=== PATIENT | male | born 1995 | race Caucasian/White ===

== ENCOUNTER 2018-09-17 03:33 | Inpatient (IN) | payer OTHER ==
[2018-09-17 03:59] LABS: HEMATOCRIT 56.1 % (42.0-52.0); HEMOGLOBIN 19.1 g/dl (13.5-17.5); MEAN CORPUSCULAR HEMOGLOBIN 28.8 pg (27.0-33.0); MEAN CORPUSCULAR VOLUME 84.6 fl (80.0-96.0); PLATELET COUNT, AUTOMATED 320 10^3/uL (150-450); RED BLOOD COUNT 6.63 10^6/uL (4.30-6.10); RED CELL DISTRIBUTION WIDTH 12.7 % (11.5-14.5); WHITE BLOOD COUNT 7.3 10^3/uL (4.0-10.0)
[2018-09-17 04:09] LABS: SUSPECT SAMPLE POS FLAG
[2018-09-17] MEDS: NS 1,000 ML IV ×3 (04:15→08:20)
[2018-09-17 04:33] LABS: ALBUMIN 4.8 GM/DL (3.2-5.2); ALKALINE PHOSPHATASE 110 U/L (45-117); ALT/SGPT 115 U/L (12-78); ANION GAP 10 MEQ/L (8-16); AST/SGOT 51 U/L (7-37); BILIRUBIN,DIRECT 0.1 MG/DL (0.0-0.2); BILIRUBIN,TOTAL 0.4 MG/DL (0.2-1.0); BLOOD UREA NITROGEN 11 MG/DL (7-18); CALCIUM LEVEL 8.6 MG/DL (8.5-10.1); CARBON DIOXIDE LEVEL 25 MEQ/L (21-32); CHLORIDE LEVEL 105 MEQ/L (98-107); CREATININE FOR GFR 1.05 MG/DL (0.70-1.30); ETHYL ALCOHOL (ETHANOL) 0.157 % (0.000-0.010); GLOMERULAR FILTRATION RATE > 60.0 (>60); GLUCOSE, FASTING 116 MG/DL (70-100); POTASSIUM SERUM 3.7 MEQ/L (3.5-5.1); SALICYLATE LEVEL < 1.7 MG/DL (5.0-30.0); SODIUM LEVEL 140 MEQ/L (136-145); TOTAL PROTEIN 8.5 GM/DL (6.4-8.2)
[2018-09-17 04:34] LABS: ACETAMINOPHEN LEVEL < 2.0 UG/ML (10.0-30.0)
[2018-09-17 04:41] LABS: AMPHETAMINES LEVEL URINE NEGATIVE (NEGATIVE); BARBITURATES URINE NEGATIVE (NEGATIVE); BENZODIAZEPINES URINE NEGATIVE (NEGATIVE); CANNABINOIDS URINE NEGATIVE (NEGATIVE); COCAINE METABOLITE URINE NEGATIVE (NEGATIVE); METHADONE URINE NEGATIVE (NEGATIVE); OPIATES URINE NEGATIVE (NEGATIVE); PHENCYCLIDINE URINE NEGATIVE (NEGATIVE)
[2018-09-17] MEDS: LORazepam 2 MG/ML VIAL (J2060) IV (06:58)
[2018-09-17 07:42] LABS: APPEARANCE, URINE CLEAR (CLEAR); BACTERIA, URINE AUTO NEGATIVE (NEGATIVE); BILIRUBIN, URINE AUTO NEGATIVE (NEGATIVE); BLOOD, URINE BLOOD 1+ (NEGATIVE); COLOR, URINE STRAW (YELLOW); GLUCOSE, URINE (UA) AUTO NEGATIVE (NEGATIVE); KETONE, URINE AUTO NEGATIVE (NEGATIVE); LEUKOCYTE ESTERASE, URINE AUTO NEGATIVE (NEGATIVE); NITRITE, URINE AUTO NEGATIVE (NEGATIVE); PROTEIN, URINE AUTO 1+ mg/dL (NEGATIVE); RBC, URINE AUTO 1 /HPF (0-3); SPECIFIC GRAVITY URINE AUTO 1.004 (1.002-1.035); SQUAMOUS EPITHELIAL CELL UR AU 0 /HPF (0-6); UROBILINOGEN, URINE AUTO 0.2 mg/dL (0.0-2.0); WBC, URINE AUTO 4 /HPF (0-3)
[2018-09-17] MEDS: OXAZEPAM 15 MG CAP PO (08:20)
[2018-09-17] MEDS ORDERED: LORazepam 2 MG TAB PO ×2 (10:00→16:15)
[2018-09-17] MEDS ORDERED: MOM 30ML SUSPENSION UDC PO (16:15)
[2018-09-17] MEDS ORDERED: MAALOX 30 ML SUSP *UDC PO (16:15)
[2018-09-17] MEDS ORDERED: IBUPROFEN 400 MG TAB PO (16:15)
[2018-09-17] MEDS: THIAMINE 100 MG TAB PO ×2 (18:14→21:06)
[2018-09-17] MEDS ORDERED: cloNIDine 0.2 MG TAB PO (18:30)
[2018-09-17] MEDS: cloNIDine 0.2 MG TAB PO (18:53)
[2018-09-17] MEDS ORDERED: LISINOPRIL 20 MG TAB PO (20:45)
[2018-09-17] MEDS ORDERED: LISINOPRIL 10 MG TAB PO (21:00)
[2018-09-17] MEDS ORDERED: THIAMINE 100 MG TAB PO (21:00)
[2018-09-17] MEDS: traZODone 50 MG TAB PO (21:06)
[2018-09-17] MEDS: **hydrALAZINE** 10 MG TAB PO (21:06)
[2018-09-18] MEDS: **hydrALAZINE** 10 MG TAB PO ×3 (06:07→21:29)
[2018-09-18] MEDS ORDERED: FOLIC ACID 1 MG TAB PO (09:00)
[2018-09-18] MEDS ORDERED: MULTIVITAMINS/MINERALS THERAP 1 TAB PO (09:00)
[2018-09-18] MEDS: FOLIC ACID 1 MG TAB PO (09:41)
[2018-09-18] MEDS: MULTIVITAMINS/MINERALS THERAP 1 TAB PO (09:43)
[2018-09-18] MEDS: cloNIDine 0.2 MG TAB PO ×2 (09:43→16:29)
[2018-09-18] MEDS: THIAMINE 100 MG TAB PO ×2 (09:43→21:29)
[2018-09-18 11:39] LABS: ALBUMIN 3.8 GM/DL (3.2-5.2); ALBUMIN/GLOBULIN RATIO 1.31 (1.00-1.93); ALKALINE PHOSPHATASE 86 U/L (45-117); ALT/SGPT 80 U/L (12-78); ANION GAP 6 MEQ/L (8-16); AST/SGOT 29 U/L (7-37); BILIRUBIN,TOTAL 0.6 MG/DL (0.2-1.0); BLOOD UREA NITROGEN 15 MG/DL (7-18); CALCIUM LEVEL 9.5 MG/DL (8.5-10.1); CARBON DIOXIDE LEVEL 29 MEQ/L (21-32); CHLORIDE LEVEL 104 MEQ/L (98-107); CREATININE FOR GFR 1.01 MG/DL (0.70-1.30); GLOMERULAR FILTRATION RATE > 60.0 (>60); GLUCOSE, FASTING 91 MG/DL (70-100); POTASSIUM SERUM 4.3 MEQ/L (3.5-5.1); SODIUM LEVEL 139 MEQ/L (136-145); TOTAL PROTEIN 6.7 GM/DL (6.4-8.2)
[2018-09-18 19:05] LABS: HEMATOCRIT 48.3 % (42.0-52.0); MEAN CORPUSCULAR HEMOGLOBIN 28.8 pg (27.0-33.0); MEAN CORPUSCULAR HGB CONC 32.9 g/dl (32.0-36.5); MEAN CORPUSCULAR VOLUME 87.5 fl (80.0-96.0); PLATELET COUNT, AUTOMATED 274 10^3/uL (150-450); RED BLOOD COUNT 5.52 10^6/uL (4.30-6.10); RED CELL DISTRIBUTION WIDTH 12.8 % (11.5-14.5); WHITE BLOOD COUNT 6.3 10^3/uL (4.0-10.0)
[2018-09-18 19:07] LABS: HEMOGLOBIN 15.9 g/dl (13.5-17.5)
[2018-09-18] MEDS: traZODone 50 MG TAB PO (21:29)
[2018-09-19] MEDS: **hydrALAZINE** 10 MG TAB PO ×3 (06:17→21:54)
[2018-09-19 07:55] LABS: ALBUMIN 3.5 GM/DL (3.2-5.2); ALBUMIN/GLOBULIN RATIO 1.13 (1.00-1.93); ALKALINE PHOSPHATASE 76 U/L (45-117); ALT/SGPT 81 U/L (12-78); ANION GAP 6 MEQ/L (8-16); AST/SGOT 29 U/L (7-37); BILIRUBIN,TOTAL 0.5 MG/DL (0.2-1.0); BLOOD UREA NITROGEN 15 MG/DL (7-18); CALCIUM LEVEL 8.9 MG/DL (8.5-10.1); CARBON DIOXIDE LEVEL 27 MEQ/L (21-32); CHLORIDE LEVEL 106 MEQ/L (98-107); CREATININE FOR GFR 0.99 MG/DL (0.70-1.30); GLOMERULAR FILTRATION RATE > 60.0 (>60); GLUCOSE, FASTING 93 MG/DL (70-100); SODIUM LEVEL 139 MEQ/L (136-145); TOTAL PROTEIN 6.6 GM/DL (6.4-8.2)
[2018-09-19] MEDS: cloNIDine 0.2 MG TAB PO (08:58)
[2018-09-19] MEDS: THIAMINE 100 MG TAB PO ×2 (08:59→21:54)
[2018-09-19] MEDS: MULTIVITAMINS/MINERALS THERAP 1 TAB PO (08:59)
[2018-09-19] MEDS: FOLIC ACID 1 MG TAB PO (08:59)
[2018-09-19 11:50] LABS: HEPATITIS C VIRUS ABY INDEX 0.1 INDEX (<0.8)
[2018-09-19 11:51] LABS: HEPATITIS B CORE ANTIBODY IGM NEGATIVE (NEGATIVE)
[2018-09-19 11:53] LABS: HEPATITIS A ANTIBODY IGM NEGATIVE (NEGATIVE)
[2018-09-19 13:58] LABS: HEPATITIS B SURFACE ANTIGEN NEGATIVE (NEGATIVE)
[2018-09-20] MEDS: **hydrALAZINE** 10 MG TAB PO ×3 (06:04→22:00)
[2018-09-20] MEDS: MULTIVITAMINS/MINERALS THERAP 1 TAB PO (09:12)
[2018-09-20] MEDS: FOLIC ACID 1 MG TAB PO (09:12)
[2018-09-21] MEDS: **hydrALAZINE** 10 MG TAB PO (05:18)
[2018-09-21] MEDS: cloNIDine 0.2 MG TAB PO (07:33)
[2018-09-21] MEDS: MULTIVITAMINS/MINERALS THERAP 1 TAB PO (09:21)
[2018-09-21] MEDS: FOLIC ACID 1 MG TAB PO (09:21)
[2018-09-21] MEDS: LISINOPRIL 10 MG TAB PO (11:16)
[2018-09-21] MEDS: amLODIPine 10 MG TAB PO (11:16)
== END 2018-09-21 13:00 | disposition home or self-care (01) | DRG 881 ==
LOC: M ED 03:33 → M ED INP 16:15 → M PSY 17:05
DX: F32.9 Major depressive disorder, single episode, unspecified (principal); R45.851 Suicidal ideations; F10.10 Alcohol abuse, uncomplicated; F19.94 Other psychoactive substance use, unspecified with psychoactive substance-induced mood disorder; Z79.899 Other long term (current) drug therapy